=== PATIENT | male | born 1960 | race Two or more races ===

== ENCOUNTER 2025-01-20 20:36 | Emergency (ER) | payer MEDICARE, MEDICAID, SELFPAY ==
[2025-01-20 20:37] VITALS: BP 156/97; PULSE 82; RESP 18; TEMP 36.7; O2SAT 98; BMI 23.9
--- NOTE | 2025-01-20 20:38 | ED_ITS ---
HPI - General Adult General Chief complaint: Skin/Abscess/Foreign Body Stated complaint: rash Time Seen by Provider: 01/20/25 21:32 Source: patient Limitations: language barrier History of Present Illness ED Provider: Brook Garcia PA-C HPI narrative: 64-year-old male presents with rash x1 week. Patient states he has a shrimp allergy, he last ate shrimp 20 years ago, he then developed a rash. Last week, the patient decided to eat soup that had shrimp in it, he subsequently developed a rash over his hands shortly thereafter. The rash has spread to bilateral upper extremities, into bilateral axilla, over the chest, upper back, groin region and lower extremities. The rash is pruritic. Patient states initially, the rash was vesicular and was weeping. Related Data Previous Rx's ?Medication ?Instructions ?Recorded hydroxyzine HCl 25 mg tablet 25 mg PO TID PRN itching #15 tabs 01/20/25 prednisone 10 mg tablets in a dose 10 mg PO DIRECTE D #48 ea 01/20/25 pack Allergies Allergy/AdvReac Type Severity Reaction Status Date / Time shrimp Allergy Rash Verified 01/20/25 20:46 Review of Systems 2 Review of Systems: Yes all other systems are reviewed and are negative Constitutional: Constitutional: Denies fatigue and Denies fever(s) ENT: Denies lip swelling, Denies sore throat, Denies throat swelling and Denies tongue swelling Cardiovascular: Cardiovascular: Denies chest pain and Denies dyspnea Respiratory: Respiratory: Denies dyspnea Integumentary/Breasts: Skin/Breast: Reports pruritus and Reports rash Endocrine: Endocrine: Denies fatigue Allergic/Immunologic: Allergic/Immunologic: Denies lip swelling, Denies throat swelling and Denies tongue swelling PMF Past Medical History Attestation statement: The following information was validated with the patient. Social History Social History Smoked in Last 30 Days: No Use of substances other than those prescribed or required for medical reasons: No Advance Directives: No Advance Directives Information Provided: No Physical Exam ED Vital Signs: Vital Signs - 24 hr 01/20/25 20:37 Temperature 98.1 F Pulse Rate 82 Respiratory Rate 18 Blood Pressure 156/97 H Pulse Oximetry 98 Oxygen Delivery Method Room Air BMI result Body Mass Index 23.9 Const Other: Alert Orientation/consciousness: patient oriented x3 Resp Effort & Inspection: normal respiratory effort Cardio Other: Normal peripheral perfusion Skin Other: Rash noted over torso, upper and lower extremities, groin region, it is in varying stages, some regions vesicular, no weepage, some dry with overlying excoriation, the lesions are raised, erythematous, pruritic, crosses the midline at multiple sites Neuro General: patient oriented x3, gait normal, no focal motor deficits and CN's II- XI intact bilaterally Psych Other: Cooperative Course Course Course Narrative: This is a rapid medical exam performed by Daron Moss NP: Additional HPI, ROS, PE not included below will be deferred to primary provider. Patient is a 64y/o Jamaican speaking male presenting to the ED with complaint of pruritic rash for the past week. Began on the left arm/neck first then spread to the right and all over the body, worst around neck. States the rash swells at times, and when it does he has pain. Tried benadryl without relief, last took around 5pm. Denies any new medications, states symptoms began after eating soup with shrimp in it. Denies hx of diabetes, denies shortness of breath. States around 20 yrs ago, had similar reaction after eating shrimp but this reaction is more severe. Had not eating shrimp again until this recent episode. Plan: labs Medications Administered Discontinued Medications Generic Name Dose Route Start Last Admin Trade Name Scottq PRN Reason Stop Dose Admin Hydroxyzine HCl 25 mg 01/20/25 22:10 01/20/25 22:22 Hydroxyzine Hcl 25 Mg Tablet PO 01/20/25 22:11 25 mg ONCE ONE Administration Prednisone 10 mg 01/20/25 22:10 01/20/25 22:22 Prednisone 10 Mg Tablet PO 01/20/25 22:11 10 mg ONCE ONE Administration Medical Decision Making Medical Decision Making [facility] Narrative: 64-year-old male presents with rash x1 week. Patient states he has a shrimp allergy, he last ate shrimp 20 years ago, he then developed a rash. Last week, the patient decided to eat soup that had shrimp in it, he subsequently developed a rash over his hands shortly thereafter. The rash has spread to bilateral upper extremities, into bilateral axilla, over the chest, upper back, groin region and lower extremities. The rash is pruritic. Patient states initially, the rash was vesicular and was weeping. No chronic issues History: Per patient I have considered the following differential diagnoses: Food allergy, allergic reaction, anaphylaxis, urticaria, contact dermatitis, scabies, bedbugs, shingles Plan: I do not believe the patient developed a rash after eating shrimp, he has also been working outside, the rash is most consistent with a contact dermatitis, given how diffuse in his we will treat with steroid taper. Screening labs obtained from triage I have independently reviewed the following tests: Labs: No leukocytosis, not anemic, no electrolyte abnormality Differential Diagnosis Differential Diagnoses: The differential diagnosis associated with the presentation includes See medical decision-making Admission/Observation Consideration of admission/observation: Escalation of care including admission/observation considered Not applicable Lab Data MDM Lab Attestation statement: I reviewed the patient's lab results. 01/20/25 21:01 01/20/25 21:01 Labs: Lab Results 01/20/25 Range/Units 21:01 WBC 7.7 (4.8-10.8) X10*3/uL RBC 4.95 (4.60-5.80) X10*6/uL Hgb 13.3 L (14.0-18.0) g/dl Hct 39.0 L (42.0-52.0) % MCV 78.8 L (80.0-98.0) fL MCH 26.9 L (27.0-33.0) pg MCHC 34.1 (31.0-36.0) g/dl RDW 14.5 (11.0-16.0) % Plt Count 214 (160-400) X10*3/uL MPV 9.0 L (9.4-12.4) fL Immature Gran % (Auto) 0.3 (0.0-0.4) % Neut % (Auto) 62.4 (45-73) % Lymph % (Auto) 26.1 (20-40) % [place] % (Auto) 9.0 (2-11) % Eos % (Auto) 2.1 (0-4) % Baso % (Auto) 0.1 (0-2) % Lymph # (Auto) 2.0 (1.2-4.9) X10*3/uL [place] # (Auto) 0.7 (0.1-1.2) X10*3/uL Eos # (Auto) 0.2 (0.0-0.4) X10*3/uL Baso # (Auto) 0.0 (0.0-0.2) X10*3/uL Abs Immat Gran (auto) 0.02 (0.00-0.03) X10*3/uL Absolute Neuts (auto) 4.8 (2.0-8.3) x10*3/uL Absolute Nucleated RBC 0.000 (0.0-0.012) X10*3/uL Nucleated RBC % (auto) 0.0 (0.0-0.2) /100WBC Sodium 141 (135-145) mmol/L Potassium 4.3 (3.3-5.1) mmol/L Chloride 108 (96-108) mmol/L Carbon Dioxide 27 (22-29) mmol/L Anion Gap 10 L (12-20) BUN 10 (9-16) mg/dL Creatinine 0.87 (0.5-1.4) mg/dL Estim Creat Clear Calc 68.1 Estimated GFR > 60 Random Glucose 95 (60-115) mg/dL Calcium 9.6 (8.4-10.2) mg/dL Total Bilirubin 0.3 (0.0-1.0) mg/dL AST 27 (5-37) U/L ALT 23 (0-40) U/L Alkaline Phosphatase 117 (39-117) U/L Total Protein 8.0 (6.5-8.0) g/dL Albumin 4.7 (3.5-5.0) g/dL Discharge Plan Discharge Clinical Impression: Contact dermatitis Patient Disposition: Home, Self-Care Instructions: Contact Dermatitis (ED) Additional Instructions: Your rash is consistent with a contact dermatitis. See home care instructions. Take the steroid taper as directed, be sure to follow the instructions and complete the course. Use hydroxyzine as needed for itching. You should also be taking [id number] Zyrtec daily, until the rash is resolved. [id number]-[id number] Aveeno based products, can help soothe and hydrate your skin. Follow-up with primary care as needed. Prescriptions: New prednisone 10 mg tablets,dose pack 10 mg PO DIRECTED Qty: 48 0RF Rx Instructions: see taper instructions hydroxyzine HCl 25 mg tablet 25 mg PO TID PRN (Reason: itching) Qty: 15 0RF Interventions: ED Discharge Assessment Last Done: 01/20/25 22:23 Discharge Date/Time: 01/20/25 22:25 Print Language: Jamaican
[2025-01-20 21:05] LABS: MANUAL DIFF FLAG NO
[2025-01-20 21:06] LABS: Hematocrit 39.0 % (42.0-52.0); Hemoglobin 13.3 g/dl (14.0-18.0); Imm Gran Abs Auto 0.02 X10*3/uL (0.00-0.03); Imm Gran Pct Auto 0.3 % (0.0-0.4); Lymphocytes Absolute Auto 2.0 X10*3/uL (1.2-4.9); Mean Corpuscular HGB Conc 34.1 g/dl (31.0-36.0); Mean Corpuscular Hemoglobin 26.9 pg (27.0-33.0); Mean Corpuscular Volume 78.8 fL (80.0-98.0); NRBC Abs Auto 0.000 X10*3/uL (0.0-0.012); NRBC Pct Auto 0.0 /100WBC (0.0-0.2); Platelet Count 214 X10*3/uL (160-400); Red Blood Count 4.95 X10*6/uL (4.60-5.80); White Blood Count 7.7 X10*3/uL (4.8-10.8)
[2025-01-20 21:20] LABS: Alanine Aminotransferase 23 U/L (0-40); Albumin Level 4.7 g/dL (3.5-5.0); Alkaline Phosphatase 117 U/L (39-117); Anion Gap 10 (12-20); Aspartate Amino Transferase 27 U/L (5-37); Blood Urea Nitrogen 10 mg/dL (9-16); Calcium 9.6 mg/dL (8.4-10.2); Carbon Dioxide 27 mmol/L (22-29); Chloride 108 mmol/L (96-108); Creatinine Clr Calc Pharmacy 68.1; Estimated Glomerular Filt Rate > 60; Potassium 4.3 mmol/L (3.3-5.1); Sodium 141 mmol/L (135-145); Total Protein 8.0 g/dL (6.5-8.0)
--- OUTSIDE RECORDS SUMMARY | 2025-01-20 21:41 | XMS_ITS | Clinical Summary ---
Author Organization [facility] Address [address] [place] [address] Phone Care Team Providers Care Window Glazier Helper Name Role Phone Rand Moore MD Primary Care Prov ider Allergies Active Allergy Reactions Criticality Noted Date Comments Egg Nausea And Vomiting 04/02/2017 Medications atorvastatin (LIPITOR) 20 mg tablet Take 1 tablet (20 mg total) by mouth 1 (one) time each day. 90 tablet 3 08/03/2024 Active amLODIPine (NORVASC) 5 mg tablet Take 1 tablet (5 mg total) by mouth 1 (one) time each day. 90 tablet 3 08/03/2024 Active metoprolol tartrate (LOPRESSOR) 50 mg tablet Take 1 tablet (50 mg total) by mouth 2 (two) times a day. 180 tablet 3 08/03/2024 Active Active Problems Problem Noted Date Diagnosed Date Pulmonary nodules 06/22/2021 Overview (03/10/2024): LDCT Subclinical hypothyroidism 03/28/2021 Abnormal brainstem auditory evoked response (TAMRA R) test 03/31/2020 Dizziness 03/31/2020 Hearing loss of right ear 03/31/2020 Hyperlipidemia 12/03/2017 Assessment & Plan (08/03/2024 10:47 AM EDT): Orders: Comprehensive metabolic panel; Future Lipid panel with reflex to direct LDL; Future Varicose veins of lower extremity with pain, edmond ateral 07/16/2017 Hypertension 04/02/2017 Assessment & Plan (08/03/2024 10:47 AM EDT): Orders: Comprehensive metabolic panel; Future Lipid panel with reflex to direct LDL; Future Immunizations Name Administration Dates Next Due Influenza Quadravalent, MDCK , 0.5ml, preservative free (Flucelvax) 6mo and older 01/31/2020 Influenza Quadravalent, MDCK , 0.5ml, with preservative (Flucelvax) 6mo and older 04/04/2017 Pfizer SARS-CoV-2 COVID-19, mRNA, LNP-S, preservative free 11/03/2020,10/13/2020 Pneumococcal conjugate 13 va lent (Prevnar 13, PCV13) 2mo and older 01/31/2020 Pneumococcal polysaccharide 23 valent (Pneumovax 23) 2yo and older 03/14/2020 Surgical History Surgery Date Site/Laterality Comments COLONOSCOPY 2016 PROCEDURE: HISTORICAL COLONOSCOPY Medical History Medical History Date Comments HTN (hypertension) DX:HTN (hyper tension) Hemorrhoid DX:Hemorrhoid Varicose veins of lower extr emity with pain, bilateral 07/16/2017 DX:Varicose veins of lower e xtremity with pain, bilateral Hyperlipidemia 12/03/2017 DX:Hyperlipidemi a Subclinical hypothyroidism 03/28/2021 DX:Yanes bclinical hypothyroidism Pulmonary nodules 06/22/2021 DX:Pulmonary n odules; COMMENT: LDCT Family History Medical History Relation Name Comments No Known Problems Brother 1 No Known Problems Brother 2 No Known Problems Father No Known Problems Mother No Known Problems Sister 1 No Known Problems Sister 2 Breast cancer Neg Hx Colon cancer Neg Hx Diabetes Neg Hx Heart attack Neg Hx Ovarian cancer Neg Hx Prostate cancer Neg Hx Stroke Neg Hx Relation Name Status Comments Brother 1 Alive Brother 2 Alive Father Mother Sister 1 Alive Sister 2 Alive Social History Tobacco Use Types Packs/Day Years Used Date Smoking Tobacco: Every Day Cigarettes 0.3 50.7 Started: 04/26/1974 Smokeless Tobacco: Never Tobacco Cessation:Ready to Q uit: Not Asked; Counseling Given: Not Answered Alcohol Use Standard Drinks/Week Comments No 0 (1 standard drink = 0.6 oz pur e alcohol) Housing Instability Answer Date Recorde d Are you worried that in the next 2 months you may not have stable housing? No 08/03/2024 Food Access & Nutrition Answer Date Rec orded Do you have access to a vari ety of food including fruits and vegetables? Yes 08/03/2024 Health Literacy Answer Date Recorded How often do you need to hav e someone help you when you read instructions, pamphlets, or other written material from your doctor or pharmacy? Never 08/03/2024 Caregiver: How often do you need to have someone help you when you read instructions, pamphlets, or other written material from your doctor or pharmacy? Not on file 08/03/2024 Financial Risk Answer Date Recorded How hard is it for you to pa y for the very basics like food, housing, medical care, and air conditioning / heating? Not very hard 08/03/2024 Transportation Answer Date Recorded Has the lack of transportati on kept you from meetings, work, or from getting things needed for daily living? No Has the lack of transportati on kept you from medical appointments or from getting medications? No 08/03/2024 Social Isolation Answer Date Recorded How often do you feel lonely or isolated from th ose around you? Never 08/03/2024 Food Risk Answer Date Recorded Within the past 12 months we worried whether our food would run out before we got money to buy more. Never true 08/03/2024 Within the past 12 months th e food we bought just didn't last and we didn't have money to get more. Never true 08/03/2024 Dependent Care Answer Date Recorded Do you need help finding or paying for care for your loved ones. For example, child care center administrator or elderly care for an older adult? No 08/03/2024 Education Answer Date Recorded Do you think completing more education or training, like finishing a GED, going to college, or learning a trade, would be helpful for you? No 08/03/2024 Employment and Income Answer Date Recor ded During the last four weeks, have you been actively looking for work? No 08/03/2024 Living Situation Answer Date Recorded What is your living situation? 0 08/03/2024 Sex and Gender Information Value Date Recorded Sex Assigned at Male 06/28/2024 12:12 PM EST Legal Sex Male 5:05 AM EST Gender Identity Male 06/28/2024 12:12 PM EST Sexual Orientation Not on file Obstetrics History Last Filed Vital Signs Vital Sign Reading Time Taken Comments Blood Pressure 126/81 08/03/2024 10:13 AM EDT Pulse 69 08/03/2024 10:13 AM EDT Temperature 35.6 C (96 F) 08/03/2024 10:13 AM EDT Respiratory Rate 14 08/03/2024 10:13 AM EDT Oxygen Saturation - - Inhaled Oxygen Concentration - - Weight 64.9 kg (143 lb) 08/03/2024 10:13 AM EDT Height 160 cm (5' 3 ) 08/03/2024 10:13 AM EDT Body Mass Index 25.33 08/03/2024 10:13 AM EDT Plan of Treatment Upcoming Encounters Date Type Department Care Team (Late st Contact Info) Description 02/07/2025 9:30 AM EDT Office Visit Adult Medicine [facility] [address] [place] [address] Savannah Montalvo PA [address] [place] [address] Health Maintenance Due Date Last Done Comments Zoster Vaccines (1 of 2) 12/05/2009 Abdominal Aortic Aneurysm (AAA) Screen 04/04/2022 Colorectal Cancer Screening: Colonoscopy 04/04/2022 Medicare Annual Wellness Visit 04/04/2022 Depression Screening 04/26/2024 10/14/2023 Falls Risk Assessment 12/05/2024 COVID-19 Vaccine (3 - 2024-2 6 season) 2024 11/03/2020, 10/13/2020 Influenza Vaccine (#1) 2024 , 04/04/2017 DTaP,Tdap,and Td Vaccines (1 - Tdap) 02/02/2025 Postponed from 12/05 (Patient Refused) Pneumococcal Vaccine: 50+ Years (3 of 3 - PCV20 or PCV21) 03/14/2025 03/14/2020, 01/31/2020 Hypertension/CHF/CAD Annual BMP Blood Test 08/03/2025 08/03/2024, 03/29/2023 Social Influencers of Health Screening 08/03/2025 08/03/2024 Cholesterol Screening (Lipid Panel) 08/03/2029 08/03/2024, 03/29/2023 RSV Immunization Adult Patients (1 - 1-dose 75+ series) 12/05/2034 Hepatitis C Screening Completed 05/08/2020 HIB Vaccines Aged Out No longer eligi ble based on patient's age to complete this topic HPV Vaccines Aged Out No longer eligi ble based on patient's age to complete this topic Hepatitis A Vaccines Aged Out No long er eligible based on patient's age to complete this topic Hepatitis B Vaccines Aged Out No long er eligible based on patient's age to complete this topic IPV Vaccines Aged Out No longer eligi ble based on patient's age to complete this topic MMR Vaccines Aged Out No longer eligi ble based on patient's age to complete this topic Meningococcal ACWY Vaccine Aged Out N o longer eligible based on patient's age to complete this topic Meningococcal B Vaccine Aged Out No l onger eligible based on patient's age to complete this topic RSV Immunization Patients Under 20 months Aged Out No longer eligible b ased on patient's age to complete this topic Varicella Vaccines Aged Out No longer eligible based on patient's age to complete this topic Procedures Procedure Name Priority Date/Time Associated Diagnosis Comments COMPREHENSIVE METABOLIC PANEL Routine 08/03/2024 10:56 AM EDT Primary hypertension Mixed hyperlipidemia Tobacco use disorder LIPID PANEL WITH REFLEX TO DIRECT LDL Routine 08/03/2024 10:56 AM EDT Primary hypertension Mixed hyperlipidemia Tobacco use disorder DEPRESSION SCREENING Routine 10/14/2023 HEPATITIS C SCREENING Routine 05/08/2020 from Last 3 Months or Most Recently Relevant to Health Maintenance Results * (ABNORMAL) Lipid panel with reflex to direct LDL (08/03/2024 10:56 AM EDT) [facility] Signature Cholesterol 179 0 - 200 mg/dL LAB CHEMISTRY METHOD 08/03/2024 2:36 PM EDT [facility] Triglycerides 108 0 - 150 mg/dL LAB CHEMISTRY METHOD 08/03/2024 2:36 PM EDT [facility] HDL 53 >=40 mg/dL LAB CHEMISTRY METHOD 08/03/2024 2:36 PM EDT [facility] LDL Calculated 104(H) 0 - 100 mg/dL LAB CHEMISTRY METHOD 08/03/2024 2:36 PM EDT [facility] VLDL Cholesterol Fredy 21.6 mg/dL LAB CHEMISTRY METHOD 08/03/2024 2:36 PM EDT [facility] Non HDL Chol. (LDL+VLDL) 126 <145 mg/dL LAB CHEMISTRY METHOD 08/03/2024 2:36 PM EDT [facility] Chol/HDL Ratio 3.4 0.0 - 4.4 LAB CHEMISTRY METHOD 08/03/2024 2:36 PM EDT [facility] Blood Venous blood specimen / Unknown Venipuncture / Unknown 08/03/2024 10:56 AM EDT 08/03/2024 10:56 AM EDT Rand Moore MD LAB BLOOD ORDERABL ES Final Result [facility] [address] [place] [address], * (ABNORMAL) Comprehensive metabolic panel (08/03/2024 10:56 AM EDT) Sodium 139 133 - 145 mmol/L LAB CHEMISTRY METHOD 08/03/2024 2:36 PM T [facility] Potassium 4.9 3.5 - 5.5 mmol/L LAB CHEMISTRY METHOD 08/03/2024 2:36 PM T [facility] Chloride 104 96 - 110 mmol/L LAB CHEMISTRY METHOD 08/03/2024 2:36 PM T [facility] CO2 31 21 - 32 mmol/L LAB CHEMISTRY METHOD 08/03/2024 2:36 PM [facility] Anion Gap 4 3 - 11 LAB CHEMISTRY METHOD 08/03/2024 2:36 PM T [facility] Glucose 94 70 - 100 mg/dL LAB CHEMISTRY METHOD 08/03/2024 2:36 PM [facility] BUN 11 5 - 25 mg/dL LAB CHEMISTRY METHOD 08/03/2024 2:36 PM [facility] Creatinine 0.78 0.70 - 1.30 mg/dL LAB CHEMISTRY METHOD 08/03/2024 2:36 PM [facility] eGFR 100 >=60 mL/min/1. 73m2 LAB CHEMISTRY METHOD 08/03/2024 2:36 PM [facility] Comment:Calculation based on the Chronic Kidney Disease Epidemiology Collaboration (CKD-EPI) equation refit without adjustment for race. BUN/Creatinine Ratio 14.1 LAB CHEMISTRY METHOD 08/03/2024 2:36 PM [facility] Calcium 9.8 8.5 - 10.5 mg/dL LAB CHEMISTRY METHOD 08/03/2024 2:36 PM [facility] AST (SGOT) 16 10 - 42 unit/L LAB CHEMISTRY METHOD 08/03/2024 2:36 PM [facility] ALT (SGPT) 34 10 - 60 unit/L LAB CHEMISTRY METHOD 08/03/2024 2:36 PM [facility] Alkaline Phosphatase 123(H) 42 - 121 unit/L LAB CHEMISTRY METHOD 08/03/2024 2:36 PM [facility] Total Protein 8.1(H) 6.0 - 8.0 g/dL LAB CHEMISTRY METHOD 08/03/2024 2:36 PM [facility] Albumin 4.0 3.2 - 5.0 g/dL LAB CHEMISTRY METHOD 08/03/2024 2:36 PM [facility] Total Bilirubin 0.6 0.0 - 1.4 mg/dL LAB CHEMISTRY METHOD 08/03/2024 2:36 PM [facility] Blood Venous blood specimen / Unknown Venipuncture / Unknown 08/03/2024 10:56 AM EDT 08/03/2024 10:56 AM EDT Rand Moore MD LAB BLOOD ORDERABL ES Final Result [facility] [address] [place] [address], * Depression Screening (10/14/2023) Depression Screening Abstracted Historical Provider HEALTH MAINTENANCE Final Result * Hepatitis C Screening (05/08/2020) Hepatitis C Screening Abstracted Historical Provider HEALTH MAINTENANCE Final Result from Last 3 Months or Most Recently Relevant to Health Maintenance Insurance MEDICARE Care Teams Window Glazier Helper Relationship Specialty Start Date End Date Rand Moore MD [address] [place] [address] PCP - General Internal Medicine 12/05/21
--- OUTSIDE RECORDS SUMMARY | 2025-01-20 21:41 | XMS_ITS | Clinical Summary ---
Author Organization [facility] [employer] [facility] Address [address] [place] [address] Care Team Providers Care Foot Setter Name Role Phone Unavailable Primary Care Provider Unavailabl e Social History Tobacco Use Types Packs/Day Years Used Date Smoking Tobacco: Never Assessed Sex and Gender Information Value Date Recorded Sex Assigned at Male 11/18/2022 2:18 PM EDT Legal Sex Male 1:47 PM EDT Gender Identity Male 11/18/2022 2:18 PM EDT Sexual Orientation Don't know 11/18/2022 2: 32 PM EDT Plan of Treatment Health Maintenance Due Date Last Done Comments CT Colonography 1959 Colonoscopy 1959 Colorectal Cancer Screening 1959 Depression Screening 1959 FIT DNA/Cologuard 1959 FIT 1959 FOBT 1959 Lipid Panel 1959 SDOH Screening 1959 Sigmoidoscopy 1959 Alcohol/Substance Use Screening 1971 Tobacco Screening 1971 Hepatitis C Screening 12/05/1977 DTaP/Tdap/Td Vaccines (1 - Tdap) 12/05/1978 Zoster Vaccines (1 of 2) 12/05/2009 COVID-19 Vaccine (3 - 2024-2 6 season) 2024 11/03/2020, 10/13/2020 Influenza Vaccine (#1) 2024 0, 04/04/2017 Pneumococcal Vaccine: 50+ Years (3 of 3 - PCV20 or PCV21) 03/14/2025 03/14/2020, 01/31/2020 RSV Patients and Patients Aged 60 years or older (1 - 1-dose 75+ series) 12/05/2034 HIB Vaccines Aged Out No longer eligi [...] patient's age to complete this topic Meningococcal Vaccine Aged Out No ozzie nesha eligible based on patient's age to complete this topic RSV under 20 months Aged Out No longe r eligible based on patient's age to complete this topic Rotavirus Vaccines Aged Out No longer eligible based on patient's age to complete this topic Insurance [address] [address] [address] ACO
--- OUTSIDE RECORDS SUMMARY | 2025-01-20 21:41 | XMS_ITS ---
Author Name [facility] Organization Unknown Care Team Organization Name Specialty Phone Email Start Date End Da te [facility] Rand Alvarez Primary Care 07/28/2022 12/13/2023 [facility] DARWIN CARDOZO Primary Care 03/03/2022
[2025-01-20 22:23] VITALS: BP 156/97; PULSE 82; RESP 18; TEMP 36.7; O2SAT 98
== END 2025-01-20 22:25 | disposition home or self-care (01) ==
PROVIDERS: Registered Nurse Emergency; Emergency Provider Emergency Medicine
DX: L25.9 Unspecified contact dermatitis, unspecified cause (principal)
CPT/HCPCS: 36415; 80053; 85025; 99283; 99284